=== PATIENT | male | born 1965 | race African-American/Black ===

== ENCOUNTER → 2021-09-20 | Emergency (ER) | payer OTHER ==
[~2021-09-20] VITALS: Ht 160 cm; Wt 72.6 kg
[~2021-09-20] MED LIST: ACETAMINOPHEN650 M2 PO
== END | disposition left against medical advice (07) ==
LOC: ER 23:42
DX: Z53.21 Procedure and treatment not carried out due to patient leaving prior to being seen by health care provider (principal)

== ENCOUNTER 2021-11-09 00:38 | Emergency (ER) | payer OTHER ==
[~2021-11-09] VITALS: Ht 160 cm; Wt 71.2 kg
[~2021-11-09 00:38] MED LIST changes: +ACETAMINOPHEN650 M2
[2021-11-09] MEDS ORDERED: DOLOGESIC 500-1 EACH PO (03:44)
== END 2021-11-09 03:49 | disposition home or self-care (01) ==
LOC: ER 00:38
DX: S82.425A Nondisplaced transverse fracture of shaft of left fibula, initial encounter for closed fracture (principal); S62.395A Other fracture of fourth metacarpal bone, left hand, initial encounter for closed fracture; S20.219A Contusion of unspecified front wall of thorax, initial encounter; Y04.8XXA Assault by other bodily force, initial encounter; Y93.9 Activity, unspecified; Y92.019 Unspecified place in single-family (private) house as the place of occurrence of the external cause; Y99.9 Unspecified external cause status; Z88.6 Allergy status to analgesic agent

== ENCOUNTER 2022-01-27 05:48 | Emergency (ER) | payer OTHER ==
[~2022-01-27] VITALS: Ht 167.6 cm; Wt 59.9 kg
[~2022-01-27 05:48] MED LIST changes: +DOLOGESIC 500-1 EACH PO
[2022-01-27] MEDS ORDERED: PROAIR HFA8.5 GM IH (05:59)
== END 2022-01-27 08:25 | disposition home or self-care (01) ==
LOC: ER 05:48
DX: J45.901 Unspecified asthma with (acute) exacerbation (principal); R06.02 Shortness of breath; Z86.59 Personal history of other mental and behavioral disorders; Z88.6 Allergy status to analgesic agent

== ENCOUNTER 2022-02-14 06:45 | Emergency (ER) | payer OTHER ==
[~2022-02-14] VITALS: Ht 160 cm; Wt 63.5 kg
== END 2022-02-14 09:32 | disposition home or self-care (01) ==
LOC: ER 06:45
DX: J44.1 Chronic obstructive pulmonary disease with (acute) exacerbation (principal); J45.901 Unspecified asthma with (acute) exacerbation; Z88.6 Allergy status to analgesic agent

== ENCOUNTER → 2022-02-14 | Emergency (ER) | payer OTHER ==
[~2022-02-14] VITALS: Ht 160 cm; Wt 62.6 kg
[~2022-02-14] MED LIST changes: +PROAIR HFA8.5 GM IH
== END | disposition left against medical advice (07) ==
LOC: ER 03:55
DX: Z53.21 Procedure and treatment not carried out due to patient leaving prior to being seen by health care provider (principal)